=== PATIENT | male | born 1995 | race Hispanic/Latino ===

== ENCOUNTER 2016-04-21 23:31 | Emergency (ER) | payer OTHER ==
[2016-04-22] MEDS ORDERED: ACETAMINOPHEN 325 MG TAB As Ordered ONE (02:06)
[2016-04-22] MEDS ORDERED: OSELTAMIVIR PHOSPHATE 75 MG CAP (TAMIFLU) As Ordered ONE (02:40)
--- NOTE | 2016-04-22 02:48 | EDDOCDS ---
Physician Documentation [facility] Name: Cristo Simmons Age: 21 yrs Sex: Male : 1995 Arrival Date: 04/21/2016 Time: 23:31 Bed I7 / 29 Private MD: Other - Complete Info On Cds Disposition: 04/22/16 02:35 Discharged to Home/Self Care. Impression: Influenza due to identified novel influenza A virus. - Condition is Stable. - Discharge Instructions: Influenza Adult. - Prescriptions for Tamiflu 75 mg Oral Capsule - take 1 capsule by ORAL route every 12 hours for 5 days; 9 capsule. ZOFRAN ODT 4 mg Oral - dissolve 1 tablet by ORAL route every 8 hours As needed do not chew, do not swallow whole; 10 tablet. - Medication Reconciliation, Local Pharmacy Hours form. - Follow up: Bridgett Canales [facility]; When: Tomorrow; Reason: Recheck today's complaints. Follow up: Emergency Department; When: As needed; Reason: Worsening of conditions. - Problem is new. - Symptoms are unchanged. Historical: - Allergies: no known allergies; - Home Meds: 1. none - PMHx: none; - PSHx: none; - Social history: Smoking status: Patient states was never smoker of tobacco. No barriers to communication noted, The patient speaks fluent Ethiopian, Speaks appropriately for age. - Family history: Not pertinent. - : The pt / caregiver states he / she is not on anticoagulants. Home medication list is obtained from the patient. - Exposure Risk Screening:: None identified. Vital Signs: 04/21 23:34 BP 147 / 78; Pulse 85; Resp 18 S; Temp 100.2(O); Pulse Ox 99% on R/A; Weight 72.57 kg / gr2 159.99 lbs (R); Height 5 ft. 8 in. (172.72 cm) (R); Pain 6/10; 04/22 02:47 BP 135 / 74; Pulse 75; Resp 18 S; Temp 100.3(O); Pulse Ox 100% on R/A; af2 04/21 23:34 Body Mass Index 24.33 (72.57 kg, 172.72 cm) gr2 MDM: 01:44 Financial registration complete. gjb 01:44 Strep Screen, Nursing ordered. ar2 01:45 -Influenza A&B Rapid Antigen - Nose Ordered. EDMS 01:51 Acetaminophen Tablet 650 mg PO once ordered. ar2 02:04 [facility] was scanned into [employer] and attached to record. jp5 02:04 [facility] Payment Agreement was scanned into [employer] and attached to record. jp5 02:08 GATS (NEGATIVE STREP SCREEN) Ordered. EDMS 02:24 -Influenza A&B Rapid Antigen - Nose Reviewed. ar2 02:28 Oseltamivir 75 mg PO once ordered. ar2 Administered Medications: 02:08 Drug: Acetaminophen 650 mg [acetaminophen 325 mg tablet (2 tabs)] Route: PO; af2 02:45 Drug: Oseltamivir 75 mg [oseltamivir 75 mg capsule (1 caps)] Route: PO; af2 Signatures: Dispatcher [employer] EDMS Sundeep Pollard, RACHEL RAMOS ar2 Alicia Huynh RN RN sls1 Carol RobersonRN RN af2 Paola Reyna jp5 Paz Vasques The chart was reviewed and I authenticate all verbal orders and agree with the evaluation and treatment provided.Attachments: 02:04 [facility] Payment Agreement jp5 [email or web address]
--- NOTE | 2016-04-22 02:48 | EDDOCDS ---
Nurse's Notes [facility] Name: Cristo Simmons Age: 21 yrs Sex: Male : 1995 Arrival Date: 04/21/2016 Time: 23:31 Bed I7 / 29 Private MD: Other - Complete Info On Cds Diagnosis: Influenza due to identified novel influenza A virus Presentation: 04/21 23:40 Presenting complaint:. sls1 23:41 Presenting complaint: Patient states: sore throat, productive cough, since this sls1 morning. Adult Sepsis Screening: The patient does not have new or worsening altered mentation. Patient's respiratory rate is less than 22. Systolic blood pressure is greater than 100. Patient has a qSOFA score of 0- Negative Sepsis Screen. Suicide/Homicide risk assessment- the patient denies having any suicidal and/or homicidal ideations and does not present with any other emotional, behavioral or mental health complaints. Status: The patient is an active duty custodial services manager. Transition of care: patient was not received from another setting of care. 23:41 Acuity: PADMA Level 4 sls1 23:41 Method Of Arrival: Walkin/Carried/Asstd sls1 Triage Assessment: 23:42 General: Appears in no apparent distress, Behavior is appropriate for age, cooperative. sls1 Pain: Location: throat Pain currently is 10 out of 10 on a pain scale. Pt Declines HIV testing. Neurological: No deficits noted. EENT: Reports sore throat. Respiratory: Onset: The symptoms/episode began/occurred today, Reports cough that is productive. Derm: No deficits noted. Historical: - Allergies: no known allergies; - Home Meds: 1. none - PMHx: none; - PSHx: none; - Social history: Smoking status: Patient states was never smoker of tobacco. No barriers to communication noted, The patient speaks fluent Kiswahili, Speaks appropriately for age. - Family history: Not pertinent. - : The pt / caregiver states he / she is not on anticoagulants. Home medication list is obtained from the patient. - Exposure Risk Screening:: None identified. Screenin/20 02:45 Screening information is obtained from the patient. Fall risk: No risks identified. af2 Assistance ADL's: requires no assistance with activities of daily living. Abuse/DV Screen: The patient / caregiver reports he/she is: not in a situation that causes fear, pain or injury. Nutritional screening: No deficits noted. Advance Directives: There is no active DNR order. home support is adequate. Assessment: 02:12 General: Appears in no apparent distress, Behavior is appropriate for age, cooperative. sls1 Neurological: No deficits noted. EENT: Throat is reddened. Cardiovascular: Chest pain is denied. Respiratory: Airway is patent Respiratory effort is even, unlabored, Respiratory pattern is regular, symmetrical, Breath sounds are clear bilaterally. Reports cough that is. Vital Signs: 04/21 23:34 BP 147 / 78; Pulse 85; Resp 18 S; Temp 100.2(O); Pulse Ox 99% on R/A; Weight 72.57 kg gr2 (R); Height 5 ft. 8 in. (172.72 cm) (R); Pain 6/10; 04/22 02:47 BP 135 / 74; Pulse 75; Resp 18 S; Temp 100.3(O); Pulse Ox 100% on R/A; af2 04/21 23:34 Body Mass Index 24.33 (72.57 kg, 172.72 cm) gr2 Vitals: 04/21 23:34 Log In Time: April 21, 2016 at 23:34. gr2 ED Course: 23:33 Patient visited by Louisa Suazo. gr2 23:33 Patient moved to Waiting gr2 23:34 Other - Complete Info On Cds is Private Physician. gr2 23:35 Patient visited by Louisa Suazo. gr2 23:35 Patient moved to Pre RCE gr2 23:42 Triage Initiated sls1 23:43 Patient moved to MTA Wait sls04/22 00:55 Patient moved to Waiting donna 01:17 Patient moved to Triage 2 sls1 01:40 Sundeep Pollard PA-C is PHCP. ar2 01:40 Boaz Cedeño DO is Attending Physician. ar2 01:40 Patient visited by Sundeep Pollard PA-C. ar2 02:03 Patient moved to I af2 02:04 [facility] was scanned into [employer] and attached to record. jp5 02:04 [facility] Payment Agreement was scanned into [employer] and attached to record. jp5 02:08 GATS (NEGATIVE STREP SCREEN) Sent. af2 02:12 Patient visited by Alicia Huynh RN. sls1 02:35 [facility]. ar2 02:45 The patient / caregiver is instructed regarding the plan of care and ED course. Patient af2 has correct armband on for positive identification. 02:46 No IV's were initiated during this patient's visit. No procedures done that require af2 assistance. Administered Medications: 02:08 Drug: Acetaminophen 650 mg [acetaminophen 325 mg tablet (2 tabs)] Route: PO; af2 02:45 Drug: Oseltamivir 75 mg [oseltamivir 75 mg capsule (1 caps)] Route: PO; af2 Order Results: Lab Order: -Influenza A&B Rapid Antigen - Nose; SPEC'M 04/22/16 01:57 Test: INFLUENZA A RAPID SCR by ICA; Value: INFLUENZA A RESULTS POSITIVE; Abnormal: Abnormal; Status: F Test: INFLUENZA A RAPID SCR by ICA; Value: Comments:; Status: F Test: INFLUENZA B RAPID SCR by ICA; Value: INFLUENZA B RESULTS NEGATIVE; Status: F Test Note: ; The Influenza test is a direct rapid immunoassay for the qualitative detection of Influenza viral antigen. Cell culture (Viral Culture) testing should be considered to confirm NEGATIVE results and to assist in detecting other viruses that can provide similar clinical symptoms. Please contact the lab within 24 hours ([phone]) if confirmatory testing is desired. Outcome: 02:35 Discharge ordered by Provider. ar2 02:46 Discharge Assessment: Patient awake, alert and oriented x 3. No cognitive and/or af2 functional deficits noted. Patient verbalized understanding of disposition instructions. patient administered narcotics - no. The following High Risk Discharge criteria are identified: None. Discharged to home ambulatory. Condition: stable. Discharge instructions given to patient, Instructed on discharge instructions, follow up and referral plans. medication usage, Demonstrated understanding of instructions, medications, Pt was receptive of discharge instructions/ teaching. No special radiology studies were completed. Property :Personal belongings accompany Pt. 02:47 Patient left the ED. af2 Signatures: Madelin Ocampo RN RN jan Robertshaw, Aaron, PA-C PA-C ar2 Alicia Huynh RN RN sls1 Louisa Suazo 2 Carol Roberson RN RN af2 Paola Reyna 5 MTDD
--- NOTE | 2016-04-24 03:48 | EDDOCDS ---
Physician Documentation [facility] Name: Cristo Simmons Age: 21 yrs Sex: Male : 1995 Arrival Date: 04/21/2016 Time: 23:31 Bed I7 / 29 Private MD: Other - Complete Info On Cds Disposition: 04/22/16 02:35 Discharged to Home/Self Care. Impression: Influenza due to identified novel influenza A virus. - Condition is Stable. - Discharge Instructions: Influenza Adult. - Prescriptions for Tamiflu 75 mg Oral Capsule - take 1 capsule by ORAL route every 12 hours for 5 days; 9 capsule. ZOFRAN ODT 4 mg Oral - dissolve 1 tablet by ORAL route every 8 hours As needed do not chew, do not swallow whole; 10 tablet. - Medication Reconciliation, Local Pharmacy Hours form. - Follow up: Bridgett Canales [facility]; When: Tomorrow; Reason: Recheck today's complaints. Follow up: Emergency Department; When: As needed; Reason: Worsening of conditions. - Problem is new. - Symptoms are unchanged. Historical: - Allergies: no known allergies; - Home Meds: 1. none - PMHx: none; - PSHx: none; - Social history: Smoking status: Patient states was never smoker of tobacco. No barriers to communication noted, The patient speaks fluent Frisian, Speaks appropriately for age. - Family history: Not pertinent. - : The pt / caregiver states he / she is not on anticoagulants. Home medication list is obtained from the patient. - Exposure Risk Screening:: None identified. Vital Signs: 04/21 23:34 BP 147 / 78; Pulse 85; Resp 18 S; Temp 100.2(O); Pulse Ox 99% on R/A; Weight 72.57 kg / gr2 159.99 lbs (R); Height 5 ft. 8 in. (172.72 cm) (R); Pain 6/10; 04/22 02:47 BP 135 / 74; Pulse 75; Resp 18 S; Temp 100.3(O); Pulse Ox 100% on R/A; af2 04/21 23:34 Body Mass Index 24.33 (72.57 kg, 172.72 cm) gr2 MDM: 01:44 Financial registration complete. gjb 01:44 Strep Screen, Nursing ordered. ar2 01:45 -Influenza A&B Rapid Antigen - Nose Ordered. EDMS 01:51 Acetaminophen Tablet 650 mg PO once ordered. ar2 02:04 [facility] was scanned into [employer] and attached to record. jp5 02:04 [facility] Payment Agreement was scanned into [employer] and attached to record. jp5 02:08 GATS (NEGATIVE STREP SCREEN) Ordered. EDMS 02:24 -Influenza A&B Rapid Antigen - Nose Reviewed. ar2 02:28 Oseltamivir 75 mg PO once ordered. ar2 11:51 T-Sheet-- Draft Copy was scanned into [employer] and attached to record. gb Administered Medications: 02:08 Drug: Acetaminophen 650 mg [acetaminophen 325 mg tablet (2 tabs)] Route: PO; af2 02:45 Drug: Oseltamivir 75 mg [oseltamivir 75 mg capsule (1 caps)] Route: PO; af2 Signatures: Dispatcher [employer] EDMS Kristina Trevino, Reg Reg gb Sundeep Pollard, PA-C PA-C ar2 Alicia Huynh RN RN sls1 Carol Roberson RN RN af2 Paola Reyna jp5 Paz Vasques The chart was reviewed and I authenticate all verbal orders and agree with the evaluation and treatment provided.Attachments: 02:04 [facility] Payment Agreement jp5 11:51 T-Sheet-- Draft Copy gb Chart Complete MTDD
--- NOTE | 2016-04-24 03:48 | EDDOCDS ---
Nurse's Notes [facility] Name: Cristo Simmons Age: 21 yrs Sex: Male : 1995 Arrival Date: 04/21/2016 Time: 23:31 Bed I7 / 29 Private MD: Other - Complete Info On Cds Diagnosis: Influenza due to identified novel influenza A virus Presentation: 04/21 23:40 Presenting complaint:. sls1 23:41 Presenting complaint: Patient states: sore throat, productive cough, since this sls1 morning. Adult Sepsis Screening: The patient does not have new or worsening altered mentation. Patient's respiratory rate is less than 22. Systolic blood pressure is greater than 100. Patient has a qSOFA score of 0- Negative Sepsis Screen. Suicide/Homicide risk assessment- the patient denies having any suicidal and/or homicidal ideations and does not present with any other emotional, behavioral or mental health complaints. 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 Transition of care: patient was not received from another setting of care. 23:41 Acuity: PADMA Level 4 sls1 23:41 Method Of Arrival: Walkin/Carried/Asstd sls1 Triage Assessment: 23:42 General: Appears in no apparent distress, Behavior is appropriate for age, cooperative. sls1 Pain: Location: throat Pain currently is 10 out of 10 on a pain scale. Pt Declines HIV testing. Neurological: No deficits noted. EENT: Reports sore throat. Respiratory: Onset: The symptoms/episode began/occurred today, Reports cough that is productive. Derm: No deficits noted. Historical: - Allergies: no known allergies; - Home Meds: 1. none - PMHx: none; - PSHx: none; - Social history: Smoking status: Patient states was never smoker of tobacco. No barriers to communication noted, The patient speaks fluent Polish, Speaks appropriately for age. - Family history: Not pertinent. - : The pt / caregiver states he / she is not on anticoagulants. Home medication list is obtained from the patient. - Exposure Risk Screening:: None identified. Screenin/20 02:45 Screening information is obtained from the patient. Fall risk: No risks identified. af2 Assistance ADL's: requires no assistance with activities of daily living. Abuse/DV Screen: The patient / caregiver reports he/she is: not in a situation that causes fear, pain or injury. Nutritional screening: No deficits noted. Advance Directives: There is no active DNR order. home support is adequate. Assessment: 02:12 General: Appears in no apparent distress, Behavior is appropriate for age, cooperative. sls1 Neurological: No deficits noted. EENT: Throat is reddened. Cardiovascular: Chest pain is denied. Respiratory: Airway is patent Respiratory effort is even, unlabored, Respiratory pattern is regular, symmetrical, Breath sounds are clear bilaterally. Reports cough that is. Vital Signs: 04/21 23:34 BP 147 / 78; Pulse 85; Resp 18 S; Temp 100.2(O); Pulse Ox 99% on R/A; Weight 72.57 kg gr2 (R); Height 5 ft. 8 in. (172.72 cm) (R); Pain 6/10; 04/22 02:47 BP 135 / 74; Pulse 75; Resp 18 S; Temp 100.3(O); Pulse Ox 100% on R/A; af2 04/21 23:34 Body Mass Index 24.33 (72.57 kg, 172.72 cm) gr2 Vitals: 04/21 23:34 Log In Time: April 21, 2016 at 23:34. gr2 ED Course: 23:33 Patient visited by Louisa Suazo. gr2 23:33 Patient moved to Waiting gr2 23:34 Other - Complete Info On Cds is Private Physician. gr2 23:35 Patient visited by Louisa Suazo. gr2 23:35 Patient moved to Pre RCE gr2 23:42 Triage Initiated sls1 23:43 Patient moved to MTA Wait sls04/22 00:55 Patient moved to Waiting donna 01:17 Patient moved to Triage 2 sls1 01:40 Sundeep Pollard PA-C is PHCP. ar2 01:40 Boaz Cedeño DO is Attending Physician. ar2 01:40 Patient visited by Sundeep Pollard PA-C. ar2 02:03 Patient moved to I af2 02:04 [facility] was scanned into [employer] and attached to record. jp5 02:04 [facility] Payment Agreement was scanned into [employer] and attached to record. jp5 02:08 GATS (NEGATIVE STREP SCREEN) Sent. af2 02:12 Patient visited by Alicia Huynh RN. sls1 02:35 Bridgett Canales [facility] is Referral Physician. ar2 02:45 The patient / caregiver is instructed regarding the plan of care and ED course. Patient af2 has correct armband on for positive identification. 02:46 No IV's were initiated during this patient's visit. No procedures done that require af2 assistance. 11:51 T-Sheet-- Draft Copy was scanned into [employer] and attached to record. gb Administered Medications: 02:08 Drug: Acetaminophen 650 mg [acetaminophen 325 mg tablet (2 tabs)] Route: PO; af2 02:45 Drug: Oseltamivir 75 mg [oseltamivir 75 mg capsule (1 caps)] Route: PO; af2 Order Results: Lab Order: -Influenza A&B Rapid Antigen - Nose; SPEC'M 04/22/16 01:57 Test: INFLUENZA A RAPID SCR by ICA; Value: INFLUENZA A RESULTS POSITIVE; Abnormal: Abnormal; Status: F Test: INFLUENZA A RAPID SCR by ICA; Value: Comments:; Status: F Test: INFLUENZA B RAPID SCR by ICA; Value: INFLUENZA B RESULTS NEGATIVE; Status: F Test Note: ; The Influenza test is a direct rapid immunoassay for the qualitative detection of Influenza viral antigen. Cell culture (Viral Culture) testing should be considered to confirm NEGATIVE results and to assist in detecting other viruses that can provide similar clinical symptoms. Please contact the lab within 24 hours ([phone]) if confirmatory testing is desired. Lab Order: GATS (NEGATIVE STREP SCREEN); SPEC'M 04/22/16 01:57 Test: GATS CULTURE (NEG STREP SCR); Value: GATS RESULT NEGATIVE FOR STREP PYOGENES (GROUP A); Status: F Test: GATS CULTURE (NEG STREP SCR); Value: <EXTERNAL COMMENT eCWMed> FULL REPORT IN LAB NOTES (eCW and Medent).; Status: F Outcome: 02:35 Discharge ordered by Provider. ar2 02:46 Discharge Assessment: Patient awake, alert and oriented x 3. No cognitive and/or af2 functional deficits noted. Patient verbalized understanding of disposition instructions. patient administered narcotics - no. The following High Risk Discharge criteria are identified: None. Discharged to home ambulatory. Condition: stable. Discharge instructions given to patient, Instructed on discharge instructions, follow up and referral plans. medication usage, Demonstrated understanding of instructions, medications, Pt was receptive of discharge instructions/ teaching. No special radiology studies were completed. Property :Personal belongings accompany Pt. 02:47 Patient left the ED. af2 Signatures: Madelin Ocampo RN RN Kristina Mazariegos, Reg Reg gb Sundeep Pollard, PAShawneeC PAShawneeC ar2 Alicia Huynh RN RN sls1 Louisa Suazo gr2 Carol Roberson RN RN af2 Paola Reyna jp5 Chart Complete MTDD
--- NOTE | 2016-04-24 03:48 | EDDOCDS ---
Physician Documentation [facility] Name: Cristo Simmons Age: 21 yrs Sex: Male : 1995 Arrival Date: 04/21/2016 Time: 23:31 Bed I7 / 29 Private MD: Other - Complete Info On Cds Disposition: 04/22/16 02:35 Discharged to Home/Self Care. Impression: Influenza due to identified novel influenza A virus. - Condition is Stable. - Discharge Instructions: Influenza Adult. - Prescriptions for Tamiflu 75 mg Oral Capsule - take 1 capsule by ORAL route every 12 hours for 5 days; 9 capsule. ZOFRAN ODT 4 mg Oral - dissolve 1 tablet by ORAL route every 8 hours As needed do not chew, do not swallow whole; 10 tablet. - Medication Reconciliation, Local Pharmacy Hours form. - Follow up: Bridgett Canales [facility]; When: Tomorrow; Reason: Recheck today's complaints. Follow up: Emergency Department; When: As needed; Reason: Worsening of conditions. - Problem is new. - Symptoms are unchanged. Historical: - Allergies: no known allergies; - Home Meds: 1. none - PMHx: none; - PSHx: none; - Social history: Smoking status: Patient states was never smoker of tobacco. No barriers to communication noted, The patient speaks fluent Latvian, Speaks appropriately for age. - Family history: Not pertinent. - : The pt / caregiver states he / she is not on anticoagulants. Home medication list is obtained from the patient. - Exposure Risk Screening:: None identified. Vital Signs: 04/21 23:34 BP 147 / 78; Pulse 85; Resp 18 S; Temp 100.2(O); Pulse Ox 99% on R/A; Weight 72.57 kg / gr2 159.99 lbs (R); Height 5 ft. 8 in. (172.72 cm) (R); Pain 6/10; 04/22 02:47 BP 135 / 74; Pulse 75; Resp 18 S; Temp 100.3(O); Pulse Ox 100% on R/A; af2 04/21 23:34 Body Mass Index 24.33 (72.57 kg, 172.72 cm) gr2 MDM: 01:44 Financial registration complete. gjb 01:44 Strep Screen, Nursing ordered. ar2 01:45 -Influenza A&B Rapid Antigen - Nose Ordered. EDMS 01:51 Acetaminophen Tablet 650 mg PO once ordered. ar2 02:04 [facility] was scanned into [email or web address] and attached to record. jp5 02:04 [facility] Payment Agreement was scanned into [employer] and attached to record. jp5 02:08 GATS (NEGATIVE STREP SCREEN) Ordered. EDMS 02:24 -Influenza A&B Rapid Antigen - Nose Reviewed. ar2 02:28 Oseltamivir 75 mg PO once ordered. ar2 11:51 T-Sheet-- Draft Copy was scanned into [email or web address] and attached to record. gb Administered Medications: 02:08 Drug: Acetaminophen 650 mg [acetaminophen 325 mg tablet (2 tabs)] Route: PO; af2 02:45 Drug: Oseltamivir 75 mg [oseltamivir 75 mg capsule (1 caps)] Route: PO; af2 Signatures: Dispatcher [employer] EDMS Kristina Trevino, Reg Reg gb Sundeep Pollard, PA-C PA-C ar2 Alicia Huynh RN RN sls1 Carol Roberson RN RN af2 Paola Reyna jp5 Paz Vasques The chart was reviewed and I authenticate all verbal orders and agree with the evaluation and treatment provided.Attachments: 02:04 [facility] Payment Agreement jp5 11:51 T-Sheet-- Draft Copy gb Chart Complete MTDD
== END 2016-04-22 02:47 | disposition home or self-care (01) ==
LOC: M ED 23:31
DX: J09.X2 Influenza due to identified novel influenza A virus with other respiratory manifestations (principal)

== ENCOUNTER 2016-11-19 07:14 | Outpatient (CLI) | payer OTHER ==
[~2016-11-19] VITALS: Ht 172.7 cm; Wt 74.8 kg
[~2016-11-19 07:14] MED LIST: NS 1,000 ML IV ONE
[2016-11-19] MEDS ORDERED: fentaNYL 100 MCG/2 ML INJECTION (J3010) As Ordered ONE (07:35)
[2016-11-19] MEDS ORDERED: LIDOCAINE 2% INJ 100 MG/5 ML SDV (FOR ANES.) As Ordered ONE (07:45)
[2016-11-19] MEDS ORDERED: PROPOFOL 200 MG/20 ML VIAL As Ordered ONE (07:45)
--- NOTE | 2016-11-19 07:53 | ROOR ---
Patient Name: Cristo Simmons Procedure Date: 11/19/2016 7:33 AM Date of : 1995 Age: 21 Room: [facility] Gender: Male Note Status: Finalized Procedure: Upper GI endoscopy Indications: Dysphagia Providers: Joseph Chandler MD Referring MD: DIOMEDES AVILA MD Requesting Provider: Medicines: Monitored Anesthesia Care Complications: No immediate complications. Procedure: Pre-Anesthesia Assessment: - Prior to the procedure, a History and Physical was performed, and patient medications and allergies were reviewed. The patient is competent. The risks and benefits of the procedure and the sedation options and risks were discussed with the patient. All questions were answered and informed consent was obtained. Patient identification and proposed procedure were verified by the physician, the nurse and the block placer in the procedure room. Mental Status Examination: alert and oriented. Airway Examination: normal oropharyngeal airway and neck mobility. Respiratory Examination: clear to auscultation. CV Examination: normal. Prophylactic Antibiotics: The patient does not require prophylactic antibiotics. Prior Anticoagulants: The patient has taken no previous anticoagulant or antiplatelet agents. ASA Grade Assessment: II - A patient with mild systemic disease. After reviewing the risks and benefits, the patient was deemed in satisfactory condition to undergo the procedure. The anesthesia plan was to use monitored anesthesia care (MAC). Immediately prior to administration of medications, the patient was re-assessed for adequacy to receive sedatives. The heart rate, respiratory rate, oxygen saturations, blood pressure, adequacy of pulmonary ventilation, and response to care were monitored throughout the procedure. The physical status of the patient was re-assessed after the procedure. The Endoscope was introduced through the mouth, and advanced to the second part of duodenum. The upper GI endoscopy was accomplished without difficulty. The patient tolerated the procedure well. Findings: The examined esophagus was normal. Biopsies were obtained from the proximal and distal esophagus with cold forceps for histology of suspected eosinophilic esophagitis. Verification of patient identification for the specimen was done by the physician and nurse using the patient's name, date and medical record number. Estimated blood loss was minimal. Diffuse moderate inflammation characterized by erythema was found in the gastric body and in the gastric antrum. Biopsies were taken with a cold forceps for Helicobacter pylori testing. The duodenal bulb and second portion of the duodenum were normal. Impression: - Normal esophagus. Biopsied. - Gastritis. Biopsied. - Normal duodenal bulb and second portion of the duodenum. Recommendation: - Patient has a contact number available for emergencies. The signs and symptoms of potential delayed complications were discussed with the patient. Return to normal activities tomorrow. Written discharge instructions were provided to the patient. - Resume previous diet. - Continue present medications. - Await pathology results. - Use Protonix (pantoprazole) 40 mg PO daily for 6 weeks. - Return to GI clinic as previously scheduled on 12/05/2016 at 9:00 Am. - Return to primary care physician. Joseph Chandler MD Joseph Chandler MD 11/19/2016 7:53:10 AM This report has been signed electronically. Number of Addenda: 0 Note Initiated On: 11/19/2016 7:33 AM Estimated Blood Loss: Estimated blood loss was minimal.
[2016-11-19 08:20] VITALS: BP 125/72
== END 2016-11-19 08:30 | disposition home or self-care (01) ==
LOC: M OPP 07:14
PROVIDERS: ATTEND Internal Medicine Gastroenterology
DX: R13.10 Dysphagia, unspecified (principal); K29.70 Gastritis, unspecified, without bleeding; Z87.19 Personal history of other diseases of the digestive system; Z79.899 Other long term (current) drug therapy
CPT/HCPCS: 43239; 88305; J3010